=== PATIENT | female | born 1975 | race Caucasian/White ===

== ENCOUNTER 2018-03-23 14:56 | Outpatient (CLI) | payer BC, SELFPAY ==
--- NOTE | 2018-03-23 10:19 | DI.RAD_ITS ---
SYMPTOM/DIAGNOSIS: RT WRIST PAIN, M25.531, S/P TRAUMA RIGHT WRIST: Three views. No acute fracture or dislocation is identified. IMPRESSION: No acute abnormality.
== END 2018-03-23 15:16 ==
PROVIDERS: PCP Family Medicine; Visit Provider Nurse Practitioner Family
DX: M25.531 Pain in right wrist (principal)
CPT/HCPCS: 73110

== ENCOUNTER 2018-10-28 11:49 | Outpatient (REF) | payer SELFPAY ==
--- NOTE | 2018-10-28 09:00 | PAPFT_PTH ---
PATIENT: Shilpi Peterson LOC: [facility] U#:[id number] AGE/SX: 43/F ROOM: RE10/28/[address]: Charley Love : 1975 BED: DIS: 10/28/2018 SPEC #: [id number] RECD: 10/28/18 12:45 STATUS: CAITLYN [facility] #: [id number] JOSE CARLOS: 10/28/18 09:[address]: Charley Love DEPT: [facility] Cytology RECD BY: Betty Carter Tissues: 1 - CX/ENDOCX FOR PAP SMEARS Procedures: PAP THIN PREP/[facility] Screening HPV DNA PROBE Comments: [id number]
== END 2018-10-28 12:09 ==
LOC: NCHCN 11:49
PROVIDERS: PCP Family Medicine; Visit Provider Family Medicine
DX: Z12.4 Encounter for screening for malignant neoplasm of cervix (principal); Z11.51 Encounter for screening for human papillomavirus (HPV); Z00.00 Encounter for general adult medical examination without abnormal findings
CPT/HCPCS: 88142; 87624

== ENCOUNTER 2021-09-09 17:53 | Outpatient (REF) | payer BC, SELFPAY ==
[2021-09-09 16:08] LABS: Hemoglobin A1C 5.9 % (<5.7)
[2021-09-10 10:27] LABS: Hepatitis C Ab w Rflx HCV PCR Negative (Negative)
[2021-09-10 11:03] LABS: HIV-1/2 Ag & Ab Screen Negative (Negative)
== END 2021-09-09 17:54 | disposition home or self-care (01) ==
LOC: NCHCN 17:53
PROVIDERS: PCP Family Medicine; Visit Provider Family Medicine
DX: Z00.00 Encounter for general adult medical examination without abnormal findings (principal); Z13.1 Encounter for screening for diabetes mellitus; Z11.4 Encounter for screening for human immunodeficiency virus [HIV]; Z11.59 Encounter for screening for other viral diseases
CPT/HCPCS: 86803; 87389; 83036

== ENCOUNTER 2021-09-26 09:30 | Outpatient (REF) | payer BC, SELFPAY ==
--- NOTE | 2021-09-26 08:20 | PAPFT_PTH ---
PATIENT: Shilpi Peterson LOC: [facility]#:[id number] AGE/SX: 46/F ROOM: RE09/26/[address]: Charley Love : 1975 BED: DIS: 09/26/2021 SPEC #: [id number] RECD: 09/26/21 18:32 STATUS: CAITLYN [facility] #: [id number] JOSE CARLOS: 09/26/21 08:[address]: Charley Love DEPT: [facility] Cytology RECD BY: Betty Carter Tissues: 1 - CX/ENDOCX FOR PAP SMEARS Procedures: PAP THIN PREP/[facility] Screening Comments: [id number] (CHLAMYDIA/GC) (UNSATISFACTORY FOR EVALUATION)
[2021-09-29 15:32] LABS: Chlamydia Result Negative (Negative); GC Result Negative (Negative)
== END 2021-09-26 09:31 | disposition home or self-care (01) ==
LOC: NCHCN 09:30
PROVIDERS: PCP Family Medicine; Visit Provider Family Medicine
DX: R87.615 Unsatisfactory cytologic smear of cervix (principal); Z11.3 Encounter for screening for infections with a predominantly sexual mode of transmission; Z12.4 Encounter for screening for malignant neoplasm of cervix
CPT/HCPCS: 87491; 87591; 88142

== ENCOUNTER 2021-10-27 01:10 | Outpatient (CLI) | payer BC, SELFPAY ==
--- NOTE | 2021-10-27 13:00 | DI.MAMMO_ITS ---
Exam(s) MAMMO SCREENING EXAM: MAMMO SCREENING CLINICAL HISTORY: SCREENING, Z12.31 TECHNIQUE: Mammograms were interpreted according to the usual protocol including computer analysis w [employer] CAD system, tomosynthesis and C-view imaging. COMPARISON: 2016 FINDINGS: The breasts are composed of scattered fibroglandular densities, Breast Density category B. No suspicious masses or suspicious microcalcifications are seen. No skin thickening or abnormal axillary lymph nodes are seen. There has been no significant change from prior exams. IMPRESSION: BI-RADS Category 1, Negative mammogram Yearly screening mammography is recommended. Breast Density - Category B, scattered fibroglandular densities. A negative radiographic report should not delay biopsy if a dominant or clinically suspicious mass is present. Up to ten percent of cancers are not identified on mammography. A negative report may reinforce clinical impression. Adenosis and dense breasts may obscure an underlying neoplasm. False positive reports average 6 to 10%. Patient will receive a letter notifying them of these results.
== END 2021-10-27 01:30 ==
PROVIDERS: PCP Family Medicine; Visit Provider Family Medicine
DX: Z12.31 Encounter for screening mammogram for malignant neoplasm of breast (principal)
CPT/HCPCS: 77063; 77067

== ENCOUNTER 2022-03-04 10:21 | Outpatient (REF) | payer BC, SELFPAY ==
--- NOTE | 2022-03-04 08:45 | PAPFT_PTH ---
PATIENT: Shilpi Peterson LOC: [facility]#:[id number] AGE/SX: 46/F ROOM: RE03/04/[address]: Charley Love : 1975 BED: DIS: 03/04/2022 SPEC #: [id number] RECD: 03/04/22 18:23 STATUS: CAITLYN REQ #: [id number] JOSE CARLOS: 03/04/22 08:[address]: Charley Love DEPT: [facility] Cytology RECD BY: Betty Carter Tissues: 1 - CX/ENDOCX FOR PAP SMEARS Procedures: PAP THIN PREP/[facility]VM Screening HPV DNA PROBE Comments: [id number]
== END 2022-03-04 10:22 | disposition home or self-care (01) ==
LOC: NCHCN 10:21
PROVIDERS: PCP Family Medicine; Visit Provider Family Medicine
DX: Z12.4 Encounter for screening for malignant neoplasm of cervix (principal); Z11.51 Encounter for screening for human papillomavirus (HPV); Z01.419 Encounter for gynecological examination (general) (routine) without abnormal findings
CPT/HCPCS: 88142; 87624

== ENCOUNTER 2022-06-03 11:24 | Outpatient (REF) | payer BC, SELFPAY ==
[2022-06-03 14:29] LABS: HCT 40.1 % (36.0-46.0); HGB 13.5 g/dL (11.2-15.7); MCH 29.9 pg (27.0-33.0); MCHC 33.7 % (32.0-36.0); MCV 89 fL (80-95); MPV 9.3 fL (8.0-11.0); Platelet Count 367 10^3/uL (130-400); RBC 4.52 10^6/uL (3.93-5.22); RDW 12.3 % (11.7-14.6); RDW-SD 40.4 fL; WBC 6.04 10^3/uL (4.4-10.8)
[2022-06-03 14:50] LABS: Hemoglobin A1C 5.6 % (<5.7)
[2022-06-03 15:28] LABS: ALT 20 U/L (14-59); AST 21 U/L (15-37); Albumin 3.9 g/dL (3.4-5.0); Alkaline Phosphatase 84 U/L (46-116); BUN 14 mg/dL (7-18); Bilirubin, Total 0.3 mg/dL (0.2-1.0); CREATININE 0.7 mg/dL (0.55-1.02); Calcium 9.4 mg/dL (8.5-10.1); Calculated LDL 95 mg/dL (<100); Chloride 100 mmol/L (98-107); Cholesterol 184 mg/dL (<200); Estimated GFR 107.28 (mL/min/1.73m2); Glucose 90 mg/dL (74-106); HDL Cholesterol 56 mg/dL (40-60); Potassium 3.8 mmol/L (3.5-5.1); Sodium 137 mmol/L (136-145); TSH (W/Ref FT4) 1.94 uIU/mL (0.36-3.74); Total Protein 7.5 g/dL (6.4-8.2); Triglyceride 166 mg/dL (<150)
[2022-06-03 15:31] LABS: COMMENT (LAB VIEW ONLY) 18.62 mg/dL
== END 2022-06-03 11:25 | disposition home or self-care (01) ==
LOC: NCHCN 11:24
PROVIDERS: PCP Family Medicine; Visit Provider Family Medicine
DX: I10 Essential (primary) hypertension (principal); R73.03 Prediabetes
CPT/HCPCS: 80053; 80061; 85027; 82043; 82570; 83036; 84443

== ENCOUNTER 2024-02-09 08:42 | Outpatient (REF) | payer BC, SELFPAY ==
[2024-02-09 16:27] LABS: ALT 14 U/L (14-59); AST 12 U/L (15-37); Albumin 3.6 g/dL (3.4-5.0); Alkaline Phosphatase 78 U/L (46-116); Anion Gap 10.4 mmol/L (3-11); BUN 20 mg/dL (7-18); Bilirubin, Total 0.28 mg/dL (0.2-1.0); CO2 28.6 mmol/L (21.0-32.0); Calcium 9.2 mg/dL (8.5-10.1); Chloride 107 mmol/L (98-107); Estimated GFR 69.49 (mL/min/1.73m2); Glucose 99 mg/dL (74-106); Potassium 4.1 mmol/L (3.5-5.1); Sodium 146 mmol/L (136-145)
[2024-02-09 16:48] LABS: Hemoglobin A1C 5.4 % (<5.7)
== END 2024-02-09 08:43 | disposition home or self-care (01) ==
LOC: NCHCN 08:42
PROVIDERS: PCP Family Medicine; Visit Provider Family Medicine
DX: I10 Essential (primary) hypertension (principal); R73.03 Prediabetes
CPT/HCPCS: 80053; 83036

== ENCOUNTER 2024-09-28 01:03 | Outpatient (CLI) | payer BC, SELFPAY ==
--- NOTE | 2024-09-28 13:10 | DI.MAMMO_ITS ---
Exam(s) MAMMO SCREENING EXAM: MAMMO SCREENING CLINICAL HISTORY: SCREENING, Z12.31 TECHNIQUE: Mammograms were interpreted according to the usual protocol including computer analysis w [employer] CAD system, tomosynthesis and C-view imaging. COMPARISON: 2015 and 2021 FINDINGS: The breasts are composed of scattered fibroglandular densities, Breast Density category B. No suspicious masses or suspicious microcalcifications are seen. No skin thickening or abnormal axillary lymph nodes are seen. There has been no significant change from prior exams. IMPRESSION: BI-RADS Category 1, Negative mammogram Yearly screening mammography is recommended. Breast Density - Category B, scattered fibroglandular densities. A negative radiographic report should not delay biopsy if a dominant or clinically suspicious mass is present. Up to ten percent of cancers are not identified on mammography. A negative report may reinforce clinical impression. Adenosis and dense breasts may obscure an underlying neoplasm. False positive reports average 6 to 10%. Patient will receive a letter notifying them of these results.
== END 2024-09-28 01:23 ==
LOC: DI 01:03
PROVIDERS: PCP Family Medicine; Visit Provider Family Medicine
DX: Z12.31 Encounter for screening mammogram for malignant neoplasm of breast (principal); R92.323 Mammographic fibroglandular density, bilateral breasts
CPT/HCPCS: 77063; 77067